=== PATIENT | male | born 1950 | race Two or more races ===

== ENCOUNTER 2017-08-23 16:30 | Inpatient (IN) | payer OTHER ==
[~2017-08-23] VITALS: Ht 167.6 cm; Wt 102.3 kg
[~2017-08-23 16:30] MED LIST: ACET-285 PO; ACYC400T PO; AMLO5TAB2 PO; ASPI81TA27 PO; ATOR10TA52 PO; BORT3.5I IV; CEPH500C PO; CHLO25TA34 PO; DEXA6TAB PO; DOCU-99 PO; DOXY150T PO; FENT25DI TD; GLIP-115 PO; LISI40TA PO; PANT1INJ3 PO; [UNRECOGNIZED DRUG - CODE] IJ; [UNRECOGNIZED DRUG - CODE] PO
[2017-08-23] MEDS ORDERED: SODIUM CHLORIDE 0.9% 1,000 ML IVB ONE (17:23)
[2017-08-23 19:14] LABS: Eosinophils # (auto) 0.1 uL; Hematocrit 30.2 % (41.0-53.0); Lymphocytes # (auto) 0.6 uL; Monocytes # (auto) 0.4 uL; Red Cell Distribution Width 15.3 % (11.8-14.3)
[2017-08-23 19:19] LABS: Basophils # (auto) 0 uL; Hemoglobin 10.5 g/dL (13.5-17.5); Lymphocytes % (auto) 12.8 % (10.0-50.0); Mean Corpuscular Hgb Conc. 34.6 g/dL (32.0-36.0); Mean Corpuscular Volume 104.1 fL (80.0-100.0); Monocytes % (auto) 8.1 % (0.0-12.0); Neutrophils # (auto) 3.3 uL; Neutrophils % (auto) 76.1 % (37.0-80.0); Nucleated Red Blood Cells % 0.2 %; Platelet Count (auto) 99 10^3/uL (140-450); White Blood Cell 4.4 10^3/uL (4.4-10.8)
[2017-08-23] MEDS ORDERED: ACETAMINOPHEN 650 MG RECT SUPP PR ONE ×4 (19:25→21:00)
[2017-08-23 19:28] LABS: INR 1.07 (0.9-1.15); Partial Thromboplastin Time 25.7 sec (22.64-33.71); Prothrombin Time 11.7 sec (9.37-12.3)
[2017-08-23] MEDS ORDERED: cefTRIAXone 1GM/10ml IVPUSH 10 ML IV ONE (19:30)
[2017-08-23 19:31] LABS: Alanine Aminotransferase 16 U/L (16-61); Albumin 2.8 g/dL (3.4-5.0); Anion Gap 8 (5-15); Aspartate Aminotransferase 10 U/L (15-37); BUN/Creatinine Ratio 7.9; Blood Urea Nitrogen 11 mg/dL (7-18); Calcium 7.2 mg/dL (8.5-10.1); Carbon Dioxide 22 mmol/L (21-32); Chloride 113 mmol/L (98-107); GFR African American 65 mL/min; GFR Non-African American 54 mL/min; Glucose 162 mg/dL (74-106); Potassium 3.7 mmol/L (3.5-5.1); Sodium 143 mmol/L (136-145)
[2017-08-23 19:36] LABS: Alkaline Phosphatase 61 U/L (45-117); Bilirubin, Total 2.1 mg/dL (0.2-1.0)
[2017-08-23 21:27] LABS: Urine Amorphous Crystal FEW /hpf (None Seen); Urine Bacteria NONE SEEN /hpf (None Seen); Urine Blood 3+ /uL (Negative); Urine Specific Gravity 1.021 (1.001-1.035); Urine WBC 27 /hpf (0 - 3)
[2017-08-23] MEDS ORDERED: LORazepam 2MG/ML-1ML VIAL ONE ×2 (22:37→23:36)
[2017-08-23] MEDS ORDERED: LORazepam 2MG/ML-1ML VIAL IV ONE ×2 (22:45→23:45)
[2017-08-23] MEDS ORDERED: SODIUM CHLORIDE 0.9% 1,000 ML IV ONE (23:45)
[2017-08-24] MEDS ORDERED: NITROGLYCERIN 0.4 MG SL TAB SL PRN (01:15)
[2017-08-24] MEDS ORDERED: PIPERACILLIN-TAZOB 3.375GM 50 ML IV ONE (01:15)
[2017-08-24] MEDS ORDERED: MORPHINE SULF INJ 2 MG/ML SYRINGE 1ML IV PRN (01:15)
[2017-08-24] MEDS ORDERED: ACETAMINOPHEN 650 MG RECT SUPP PR PRN (01:15)
[2017-08-24] MEDS ORDERED: VANCOMYCIN PER PHARMACY 0 MG IV SCH (01:15)
[2017-08-24] MEDS ORDERED: VANCOMYCIN 1GM/250ML 250 ML IV ONE (01:45)
[2017-08-24 04:12] VITALS: BP 145/67
[2017-08-24 06:16] LABS: Albumin 2.7 g/dL (3.4-5.0); BUN/Creatinine Ratio 9.4; Potassium 3.8 mmol/L (3.5-5.1)
[2017-08-24 06:19] LABS: Bilirubin, Total 1.8 mg/dL (0.2-1.0); Total Protein 6.3 g/dL (6.4-8.2)
[2017-08-24] MEDS: PIPERACILLIN-TAZOB 3.375GM 50 ML IV SCH ×3 (06:41→18:33)
[2017-08-24] MEDS: IPRATROPIUM BROM 0.5 MG/2.5ML INH SOL NEB SCH ×2 (06:45→11:00)
[2017-08-24] MEDS: ALBUTEROL SULF 2.5 MG/0.5ML(0.5%) NEB SOLN NEB SCH ×2 (06:45→11:00)
[2017-08-24] MEDS ORDERED: LORazepam 2MG/ML-1ML VIAL IV PRN (11:15)
[2017-08-24] MEDS ORDERED: PANTOPRAZOLE 40 MG/10 ML VIAL IV ONE (15:15)
[2017-08-24] MEDS ORDERED: LISINOPRIL 20 MG TAB PO ONE (15:30)
[2017-08-24] MEDS: ATORVASTATIN 20 MG TAB PO SCH (22:05)
[2017-08-24] MEDS: ACETAMINOPHEN 650 MG RECT SUPP PR PRN (22:45)
[2017-08-24] MEDS: VANCOMYCIN 1GM/250ML 250 ML IV SCH (23:00)
[2017-08-25] MEDS ORDERED: AMIODARONE HCL 150 MG in D5W 5% 100 ML IV ONE ×2
[2017-08-25] MEDS ORDERED: AMIODARONE HCL 900 MG in DEXTROSE 500 ML IV SCH ×2 (00:01→06:01)
[2017-08-25] MEDS ORDERED: AMIODARONE HCL (50 MG/ ML) 3 ML VIAL IV ONE ×2 (00:09→00:11)
[2017-08-25] MEDS: PIPERACILLIN-TAZOB 3.375GM 50 ML IV SCH ×4 (00:30→17:54)
[2017-08-25] MEDS: ALBUTEROL SULF 2.5 MG/0.5ML(0.5%) NEB SOLN NEB SCH ×3 (06:45→18:21)
[2017-08-25] MEDS: IPRATROPIUM BROM 0.5 MG/2.5ML INH SOL NEB SCH ×3 (06:45→18:21)
[2017-08-25 08:50] LABS: Eosinophils # (auto) 0.2 uL; Hemoglobin 9.2 g/dL (13.5-17.5); Lymphocytes # (auto) 0.7 uL; Monocytes # (auto) 0.3 uL; Neutrophils % (auto) 64.3 % (37.0-80.0); Red Cell Distribution Width 15.4 % (11.8-14.3)
[2017-08-25 08:53] LABS: Basophils # (auto) 0.1 uL; Basophils % (auto) 1.8 % (0.0-2.0); Eosinophils % (auto) 5.5 % (0.0-7.0); Hematocrit 26.4 % (41.0-53.0); Lymphocytes % (auto) 18.6 % (10.0-50.0); Mean Corpuscular Hemoglobin 36.3 pg (28.0-32.0); Mean Corpuscular Hgb Conc. 34.7 g/dL (32.0-36.0); Mean Corpuscular Volume 104.6 fL (80.0-100.0); Monocytes % (auto) 9.8 % (0.0-12.0); Neutrophils # (auto) 2.2 uL; Nucleated Red Blood Cells % 0.3 %; Platelet Count (auto) 91 10^3/uL (140-450); Red Blood Cells 2.53 10^6/uL (4.5-5.90); White Blood Cell 3.5 10^3/uL (4.4-10.8)
[2017-08-25 09:13] LABS: Albumin 2.4 g/dL (3.4-5.0); BUN/Creatinine Ratio 10.9; Bilirubin, Total 1.5 mg/dL (0.2-1.0); Calcium 6.9 mg/dL (8.5-10.1); Potassium 3.3 mmol/L (3.5-5.1); Total Protein 5.5 g/dL (6.4-8.2)
[2017-08-25] MEDS: LISINOPRIL 20 MG TAB PO SCH (11:12)
[2017-08-25] MEDS: PANTOPRAZOLE 40 MG/10 ML VIAL IV SCH (11:12)
[2017-08-25] MEDS: SODIUM CHLORIDE 0.9% 1,000 ML IV SCH (16:45)
[2017-08-25] MEDS ORDERED: LIDOCAINE 1% IV ONE (17:45)
[2017-08-25] MEDS ORDERED: D5W 5% IV ONE (17:45)
[2017-08-25] MEDS ORDERED: POTASSIUM CHLORIDE IV ONE (17:45)
[2017-08-25] MEDS ORDERED: POTASSIUM CHLORIDE 20 MEQ, LIDOCAINE 1% (LOCAL ANESTH.) 2 ML in SODIUM CHL 0.9% 100 ML IV ONE (17:45)
[2017-08-25 20:00] VITALS: BP 153/74
[2017-08-25 20:10] VITALS: BP 153/73
[2017-08-25] MEDS: VANCOMYCIN 1GM/250ML 250 ML IV SCH (21:58)
[2017-08-25] MEDS: ATORVASTATIN 20 MG TAB PO SCH (22:00)
[2017-08-26] VITALS (7 sets, daily range): BP systolic 119–159; BP diastolic 66–78
[2017-08-26] MEDS: IPRATROPIUM BROM 0.5 MG/2.5ML INH SOL NEB SCH ×5 (00:55→23:57)
[2017-08-26] MEDS: ALBUTEROL SULF 2.5 MG/0.5ML(0.5%) NEB SOLN NEB SCH ×5 (00:55→23:57)
[2017-08-26] MEDS: SODIUM CHLORIDE 0.9% 1,000 ML IV SCH ×3 (02:00→21:36)
[2017-08-26 05:17] LABS: Eosinophils # (auto) 0 uL; Hemoglobin 8.5 g/dL (13.5-17.5); Lymphocytes # (auto) 0.5 uL; Monocytes # (auto) 0.3 uL; Neutrophils # (auto) 1.3 uL; White Blood Cell 2.3 10^3/uL (4.4-10.8)
[2017-08-26 05:20] LABS: Basophils # (auto) 0 uL; Basophils % (auto) 1.4 % (0.0-2.0); Hematocrit 24.5 % (41.0-53.0); Mean Corpuscular Hemoglobin 36.2 pg (28.0-32.0); Mean Corpuscular Hgb Conc. 34.9 g/dL (32.0-36.0); Mean Corpuscular Volume 103.7 fL (80.0-100.0); Monocytes % (auto) 14.6 % (0.0-12.0); Nucleated Red Blood Cells % 0.3 %; Platelet Count (auto) 101 10^3/uL (140-450); Red Blood Cells 2.36 10^6/uL (4.5-5.90)
[2017-08-26 05:40] LABS: Albumin 2.4 g/dL (3.4-5.0); BUN/Creatinine Ratio 7.4; Bilirubin, Total 0.9 mg/dL (0.2-1.0); Calcium 6.9 mg/dL (8.5-10.1); Total Protein 5.5 g/dL (6.4-8.2)
[2017-08-26 06:13] LABS: Potassium 2.9 mmol/L (3.5-5.1)
[2017-08-26] MEDS: PIPERACILLIN-TAZOB 3.375GM 50 ML IV SCH ×2 (06:27)
[2017-08-26] MEDS ORDERED: POTASSIUM CHL 20MEQ/50ML 50 ML IV ONE (08:45)
[2017-08-26] MEDS ORDERED: LORazepam 2MG/ML-1ML VIAL IV PRN (09:15)
[2017-08-26] MEDS: LISINOPRIL 20 MG TAB PO SCH (09:28)
[2017-08-26 09:36] LABS: Cholesterol 82 mg/dL (< 200); HDL Cholesterol 37 mg/dL (40-59); LDL Cholesterol 41 mg/dL (< 100); Triglycerides 115 mg/dL (< 150)
[2017-08-26] MEDS: ACETAMINOPHEN 650 MG RECT SUPP PR PRN (09:55)
[2017-08-26] MEDS: ASPirin 300 MG RECTAL SUPP PR SCH (10:00)
[2017-08-26] MEDS ORDERED: POTASSIUM CHLORIDE 40 MEQ, LIDOCAINE 1% (LOCAL ANESTH.) 4 ML in SODIUM CHL 0.9% 100 ML IV ONE ×2 (10:45→12:30)
[2017-08-26] MEDS ORDERED: DEXTROSE (50%) 50ML SYRG IV PRN (11:00)
[2017-08-26] MEDS: PANTOPRAZOLE 40 MG/10 ML VIAL IV SCH (11:45)
[2017-08-26] MEDS: ACCU-CHEK COMFORT CURVE STRIP VI SCH ×2 (12:00→18:29)
[2017-08-26] MEDS: InsuLIN REG 1unit/0.01ml Soln (100units/ml) SC SCH ×2 (13:11→19:50)
[2017-08-26] MEDS: PIPERACILLIN TAZOB 3.375 GM IV SCH ×2 (13:12→20:19)
[2017-08-26 13:48] LABS: Free T4 (Free Thyroxine) 0.97 ng/dL (0.89-1.76)
[2017-08-26 13:49] LABS: Folate (Folic Acid) 13.46 ng/mL (5.38-24)
[2017-08-26] MEDS: LORazepam 2MG/ML-1ML VIAL IV PRN (15:10)
[2017-08-26] MEDS ORDERED: LIDOCAINE 1% HCL (LOCAL ANESTH.) INJ 20ML MDV ID ONE (16:15)
[2017-08-26] MEDS: VANCOMYCIN 1GM/250ML 250 ML IV SCH (17:00)
[2017-08-26] MEDS ORDERED: AMIODARONE HCL 200 MG TAB PO ONE (17:00)
[2017-08-26] MEDS ORDERED: PIPERACILLIN TAZOB 3.375 GM IV SCH (18:00)
[2017-08-26] MEDS: AMIODARONE HCL 200 MG TAB PO SCH (21:35)
[2017-08-26] MEDS: SODIUM CHLOR 0.9% PF (SALINE LOCK) 10ML VIAL IV SCH (21:36)
[2017-08-26] MEDS: ATORVASTATIN 20 MG TAB PO SCH (21:36)
[2017-08-27] VITALS: BP 135/75
[2017-08-27] MEDS: PIPERACILLIN TAZOB 3.375 GM IV SCH ×4 (00:10→21:10)
[2017-08-27] MEDS: ACCU-CHEK COMFORT CURVE STRIP VI SCH ×4 (00:11→17:42)
[2017-08-27] MEDS: ACETAMINOPHEN 650 MG RECT SUPP PR PRN (00:33)
[2017-08-27] MEDS: AMIODARONE HCL 900 MG in DEXTROSE 500 ML IV SCH (02:31)
[2017-08-27 04:00] VITALS: BP 157/85
[2017-08-27 05:07] LABS: Basophils # (auto) 0 uL; Eosinophils # (auto) 0 uL; Hemoglobin 7.8 g/dL (13.5-17.5); Lymphocytes # (auto) 0.5 uL; Monocytes # (auto) 0.2 uL; Neutrophils # (auto) 1.2 uL; Red Cell Distribution Width 15.5 % (11.8-14.3)
[2017-08-27 05:09] LABS: Basophils % (auto) 1.6 % (0.0-2.0); Hematocrit 23.1 % (41.0-53.0); Lymphocytes % (auto) 25.9 % (10.0-50.0); Mean Corpuscular Hemoglobin 35.6 pg (28.0-32.0); Mean Corpuscular Hgb Conc. 33.9 g/dL (32.0-36.0); Monocytes % (auto) 12.1 % (0.0-12.0); Neutrophils % (auto) 59.4 % (37.0-80.0); Nucleated Red Blood Cells % 0.1 %; Platelet Count (auto) 94 10^3/uL (140-450)
[2017-08-27 05:39] LABS: Albumin 2.2 g/dL (3.4-5.0); BUN/Creatinine Ratio 6.8; Bilirubin, Total 0.9 mg/dL (0.2-1.0); Calcium 6.9 mg/dL (8.5-10.1); Potassium 3.2 mmol/L (3.5-5.1); Total Protein 5.4 g/dL (6.4-8.2)
[2017-08-27] MEDS: InsuLIN REG 1unit/0.01ml Soln (100units/ml) SC SCH ×4 (06:00→17:41)
[2017-08-27] MEDS: IPRATROPIUM BROM 0.5 MG/2.5ML INH SOL NEB SCH ×2 (06:07→20:09)
[2017-08-27] MEDS: ALBUTEROL SULF 2.5 MG/0.5ML(0.5%) NEB SOLN NEB SCH ×2 (06:08→20:08)
[2017-08-27 07:56] VITALS: BP 125/75
[2017-08-27] MEDS: SODIUM CHLOR 0.9% PF (SALINE LOCK) 10ML VIAL IV SCH ×2 (09:59→21:10)
[2017-08-27] MEDS: AMIODARONE HCL 200 MG TAB PO SCH ×2 (10:00→21:10)
[2017-08-27] MEDS: ASPirin 300 MG RECTAL SUPP PR SCH (10:00)
[2017-08-27] MEDS: LISINOPRIL 20 MG TAB PO SCH (10:00)
[2017-08-27] MEDS: PANTOPRAZOLE 40 MG/10 ML VIAL IV SCH (10:00)
[2017-08-27] MEDS: SODIUM CHLORIDE 0.9% 1,000 ML IV SCH (11:55)
[2017-08-27 12:10] VITALS: BP 139/79
[2017-08-27] MEDS ORDERED: POTASSIUM CHLORIDE 40 MEQ, LIDOCAINE 1% (LOCAL ANESTH.) 4 ML in SODIUM CHL 0.9% 100 ML IV ONE (12:30)
[2017-08-27] MEDS ORDERED: POTASSIUM CHLORIDE 40 MEQ, LIDOCAINE 1% (LOCAL ANESTH.) 4 ML in SODIUM CHL 0.9% 250 ML IV ONE (12:45)
[2017-08-27 15:50] VITALS: BP 159/78
[2017-08-27] MEDS: VANCOMYCIN 1GM/250ML 250 ML IV SCH (17:00)
[2017-08-27 20:00] VITALS: BP 154/66
[2017-08-27] MEDS: ATORVASTATIN 20 MG TAB PO SCH (21:10)
[2017-08-28 00:03] VITALS: BP 157/76
[2017-08-28] MEDS: ACCU-CHEK COMFORT CURVE STRIP VI SCH ×4 (00:13→17:45)
[2017-08-28] MEDS: PIPERACILLIN TAZOB 3.375 GM IV SCH ×5 (00:13→23:43)
[2017-08-28] MEDS: IPRATROPIUM BROM 0.5 MG/2.5ML INH SOL NEB SCH ×4 (01:18→19:12)
[2017-08-28] MEDS: ALBUTEROL SULF 2.5 MG/0.5ML(0.5%) NEB SOLN NEB SCH ×4 (01:18→19:12)
[2017-08-28] MEDS: SODIUM CHLORIDE 0.9% 1,000 ML IV SCH (01:21)
[2017-08-28] MEDS: LORazepam 2MG/ML-1ML VIAL IV PRN (01:50)
[2017-08-28] MEDS: AMIODARONE HCL 900 MG in DEXTROSE 500 ML IV SCH (03:06)
[2017-08-28] MEDS: ACETAMINOPHEN 650 MG RECT SUPP PR PRN (03:49)
[2017-08-28 04:08] VITALS: BP 137/64
[2017-08-28 06:02] LABS: Eosinophils # (auto) 0 uL; Hemoglobin 7.3 g/dL (13.5-17.5); Platelet Count (auto) 102 10^3/uL (140-450)
[2017-08-28 06:04] LABS: Basophils # (auto) 0.1 uL; Basophils % (auto) 3.8 % (0.0-2.0); Eosinophils % (auto) 2.3 % (0.0-7.0); Hematocrit 21.6 % (41.0-53.0); Lymphocytes # (auto) 0.4 uL; Lymphocytes % (auto) 21.2 % (10.0-50.0); Mean Corpuscular Hemoglobin 35.7 pg (28.0-32.0); Mean Corpuscular Hgb Conc. 33.8 g/dL (32.0-36.0); Mean Corpuscular Volume 105.8 fL (80.0-100.0); Monocytes # (auto) 0.3 uL; Monocytes % (auto) 12.5 % (0.0-12.0); Neutrophils # (auto) 1.2 uL; Neutrophils % (auto) 60.2 % (37.0-80.0); Nucleated Red Blood Cells % 0.1 %; Red Blood Cells 2.04 10^6/uL (4.5-5.90); Red Cell Distribution Width 15.7 % (11.8-14.3)
[2017-08-28] MEDS: InsuLIN REG 1unit/0.01ml Soln (100units/ml) SC SCH ×4 (06:18→17:45)
[2017-08-28 06:35] LABS: BUN/Creatinine Ratio 6.2; Bilirubin, Total 0.8 mg/dL (0.2-1.0); Calcium 7.1 mg/dL (8.5-10.1); Total Protein 5.2 g/dL (6.4-8.2)
[2017-08-28 06:39] LABS: Potassium 2.9 mmol/L (3.5-5.1)
[2017-08-28] MEDS ORDERED: SOD CHL 0.9%/ KCL 40MEQ 1,000 ML IV ONE (06:42)
[2017-08-28] MEDS: SOD CHL 0.9%/ KCL 40MEQ 1,000 ML IV SCH ×2 (06:51→16:45)
[2017-08-28 08:00] VITALS: BP 141/75
[2017-08-28] MEDS: AMIODARONE HCL 200 MG TAB PO SCH ×2 (10:00→22:00)
[2017-08-28] MEDS: ASPirin 300 MG RECTAL SUPP PR SCH (10:00)
[2017-08-28] MEDS: PANTOPRAZOLE 40 MG/10 ML VIAL IV SCH (10:31)
[2017-08-28] MEDS: SODIUM CHLOR 0.9% PF (SALINE LOCK) 10ML VIAL IV SCH ×2 (10:31→22:51)
[2017-08-28] MEDS: LISINOPRIL 20 MG TAB PO SCH (10:31)
[2017-08-28 12:00] VITALS: BP 148/72
[2017-08-28] MEDS: IPRATROPIUM BROM 0.5 MG/2.5ML INH SOL NEB PRN (15:02)
[2017-08-28] MEDS: ALBUTEROL SULF 2.5 MG/0.5ML(0.5%) NEB SOLN NEB PRN (15:02)
[2017-08-28 16:00] VITALS: BP 153/79
[2017-08-28] MEDS: VANCOMYCIN 1GM/250ML 250 ML IV SCH (17:05)
[2017-08-28 19:59] VITALS: BP 138/81
[2017-08-28] MEDS: ATORVASTATIN 20 MG TAB PO SCH (21:20)
[2017-08-28] MEDS ORDERED: DIPHENOXYLATE W/ATROPINE 2.5 MG TAB PO ONE (22:30)
[2017-08-29] VITALS (7 sets, daily range): BP systolic 130–157; BP diastolic 59–89
[2017-08-29] MEDS: IPRATROPIUM BROM 0.5 MG/2.5ML INH SOL NEB SCH ×4 (00:10→19:43)
[2017-08-29] MEDS: ALBUTEROL SULF 2.5 MG/0.5ML(0.5%) NEB SOLN NEB SCH ×4 (00:11→19:43)
[2017-08-29] MEDS: ACCU-CHEK COMFORT CURVE STRIP VI SCH ×5 (00:13→23:55)
[2017-08-29] MEDS: InsuLIN REG 1unit/0.01ml Soln (100units/ml) SC SCH ×5 (00:13→23:55)
[2017-08-29] MEDS: ACETAMINOPHEN 650 MG RECT SUPP PR PRN ×2 (00:14→08:17)
[2017-08-29] MEDS: LORazepam 2MG/ML-1ML VIAL IV PRN ×2 (01:15→22:30)
[2017-08-29] MEDS ORDERED: MORPHINE SULF INJ 2 MG/ML SYRINGE 1ML IV PRN (02:15)
[2017-08-29] MEDS: SOD CHL 0.9%/ KCL 40MEQ 1,000 ML IV SCH ×3 (02:45→22:30)
[2017-08-29] MEDS: AMIODARONE HCL 900 MG in DEXTROSE 500 ML IV SCH ×2 (02:52→09:15)
[2017-08-29 06:08] LABS: Albumin 1.9 g/dL (3.4-5.0); BUN/Creatinine Ratio 4.1; Calcium 6.9 mg/dL (8.5-10.1)
[2017-08-29 06:11] LABS: Bilirubin, Total 0.7 mg/dL (0.2-1.0); Total Protein 5.3 g/dL (6.4-8.2)
[2017-08-29 06:16] LABS: Potassium 2.9 mmol/L (3.5-5.1)
[2017-08-29] MEDS: PIPERACILLIN TAZOB 3.375 GM IV SCH ×4 (06:21→23:55)
[2017-08-29] MEDS ORDERED: MORPHINE SULFATE 4 MG/ML SYR/VIAL IV PRN (08:15)
[2017-08-29] MEDS: MORPHINE SULFATE 4 MG/ML SYR/VIAL IV PRN ×2 (08:39→20:08)
[2017-08-29] MEDS: LISINOPRIL 20 MG TAB PO SCH (10:00)
[2017-08-29] MEDS: AMIODARONE HCL 200 MG TAB PO SCH ×2 (10:00→21:43)
[2017-08-29] MEDS: PANTOPRAZOLE 40 MG/10 ML VIAL IV SCH (10:24)
[2017-08-29] MEDS: SODIUM CHLOR 0.9% PF (SALINE LOCK) 10ML VIAL IV SCH ×2 (10:24→21:43)
[2017-08-29] MEDS: POTASSIUM CHL 20MEQ/50ML 50 ML IV SCH ×2 (10:26→11:40)
[2017-08-29] MEDS: ALBUTEROL SULF 2.5 MG/0.5ML(0.5%) NEB SOLN NEB PRN (10:35)
[2017-08-29] MEDS: IPRATROPIUM BROM 0.5 MG/2.5ML INH SOL NEB PRN (10:35)
[2017-08-29] MEDS: ASPirin 300 MG RECTAL SUPP PR SCH (10:45)
[2017-08-29] MEDS ORDERED: FUROSEMIDE 20 MG/2 ML VIAL IV ONE (15:15)
[2017-08-29] MEDS: VANCOMYCIN 1GM/250ML 250 ML IV SCH (17:33)
[2017-08-29] MEDS: ATORVASTATIN 20 MG TAB PO SCH (21:43)
[2017-08-30] VITALS (7 sets, daily range): BP systolic 105–162; BP diastolic 71–91
[2017-08-30] MEDS: MORPHINE SULFATE 4 MG/ML SYR/VIAL IV PRN (00:09)
[2017-08-30] MEDS ORDERED: diphenhdrAMINE HCL 50 MG/1 ML VL ONE (01:42)
[2017-08-30] MEDS ORDERED: diphenhdrAMINE HCL 50 MG/1 ML VL IV ONE (01:45)
[2017-08-30] MEDS: ENALAPRILAT 1.25 MG/ML-1ML VIAL IV PRN (01:54)
[2017-08-30] MEDS: PIPERACILLIN TAZOB 3.375 GM IV SCH ×3 (05:35→18:08)
[2017-08-30] MEDS: ACCU-CHEK COMFORT CURVE STRIP VI SCH ×3 (05:36→17:52)
[2017-08-30] MEDS: InsuLIN REG 1unit/0.01ml Soln (100units/ml) SC SCH ×3 (05:36→17:55)
[2017-08-30 05:54] LABS: Albumin 2.1 g/dL (3.4-5.0); BUN/Creatinine Ratio 4.9; Calcium 7.2 mg/dL (8.5-10.1); Potassium 3.4 mmol/L (3.5-5.1)
[2017-08-30 05:57] LABS: Bilirubin, Total 0.5 mg/dL (0.2-1.0); Total Protein 5.7 g/dL (6.4-8.2)
[2017-08-30] MEDS: IPRATROPIUM BROM 0.5 MG/2.5ML INH SOL NEB SCH ×5 (06:15→22:00)
[2017-08-30] MEDS: ALBUTEROL SULF 2.5 MG/0.5ML(0.5%) NEB SOLN NEB SCH ×6 (06:15→22:00)
[2017-08-30] MEDS: SOD CHL 0.9%/ KCL 40MEQ 1,000 ML IV SCH (08:45)
[2017-08-30] MEDS: LISINOPRIL 20 MG TAB PO SCH (09:50)
[2017-08-30] MEDS: SODIUM CHLOR 0.9% PF (SALINE LOCK) 10ML VIAL IV SCH ×2 (09:50→22:08)
[2017-08-30] MEDS: PANTOPRAZOLE 40 MG/10 ML VIAL IV SCH (09:50)
[2017-08-30] MEDS: AMIODARONE HCL 200 MG TAB PO SCH ×2 (09:50→22:14)
[2017-08-30] MEDS: ASPirin 300 MG RECTAL SUPP PR SCH (09:51)
[2017-08-30] MEDS ORDERED: FUROSEMIDE 40 MG/4 ML VIAL ONE (10:07)
[2017-08-30] MEDS ORDERED: IPRATROPIUM BROM 0.5 MG/2.5ML INH SOL NEB SCH (10:10)
[2017-08-30] MEDS: IPRATROPIUM BROM 0.5 MG/2.5ML INH SOL NEB PRN (10:11)
[2017-08-30] MEDS: ALBUTEROL SULF 2.5 MG/0.5ML(0.5%) NEB SOLN NEB PRN (10:11)
[2017-08-30] MEDS ORDERED: FUROSEMIDE 40 MG/4 ML VIAL IV ONE (10:15)
[2017-08-30] MEDS ORDERED: methylPREDNISolone SOD SUCC 125 MG/2 ML VL IM ONE (10:30)
[2017-08-30] MEDS ORDERED: SODIUM BICARBONATE 8.4 % INJ 50ML VIAL IV ONE (14:45)
[2017-08-30] MEDS: VANCOMYCIN 1GM/250ML 250 ML IV SCH (17:03)
[2017-08-30] MEDS: AMIODARONE HCL 900 MG in DEXTROSE 500 ML IV SCH (22:00)
[2017-08-30] MEDS: ATORVASTATIN 20 MG TAB PO SCH (22:03)
[2017-08-31] VITALS (9 sets, daily range): BP systolic 144–174; BP diastolic 75–94
[2017-08-31] MEDS: PIPERACILLIN TAZOB 3.375 GM IV SCH ×4 (00:03→18:23)
[2017-08-31] MEDS: ACCU-CHEK COMFORT CURVE STRIP VI SCH ×4 (00:13→18:09)
[2017-08-31] MEDS: ENALAPRILAT 1.25 MG/ML-1ML VIAL IV PRN ×2 (00:19→22:02)
[2017-08-31] MEDS: InsuLIN REG 1unit/0.01ml Soln (100units/ml) SC SCH ×4 (00:52→18:09)
[2017-08-31] MEDS: MORPHINE SULFATE 4 MG/ML SYR/VIAL IV PRN (01:42)
[2017-08-31] MEDS: ALBUTEROL SULF 2.5 MG/0.5ML(0.5%) NEB SOLN NEB SCH ×3 (02:17→22:24)
[2017-08-31] MEDS: IPRATROPIUM BROM 0.5 MG/2.5ML INH SOL NEB SCH ×3 (02:17→22:24)
[2017-08-31 09:35] LABS: Basophils # (auto) 0 uL; Basophils % (auto) 0.2 % (0.0-2.0); Eosinophils # (auto) 0 uL; Hematocrit 24.1 % (41.0-53.0); Lymphocytes # (auto) 0.3 uL; Lymphocytes % (auto) 9.9 % (10.0-50.0); Mean Corpuscular Hgb Conc. 33.2 g/dL (32.0-36.0); Monocytes # (auto) 0.2 uL; Monocytes % (auto) 4.3 % (0.0-12.0); Neutrophils % (auto) 85.6 % (37.0-80.0); Nucleated Red Blood Cells % 0.3 %; Platelet Count (auto) 116 10^3/uL (140-450); Red Blood Cells 2.28 10^6/uL (4.5-5.90); Red Cell Distribution Width 14.9 % (11.8-14.3); White Blood Cell 3.5 10^3/uL (4.4-10.8)
[2017-08-31 09:37] LABS: Mean Corpuscular Volume 105.5 fL (80.0-100.0)
[2017-08-31 10:12] LABS: Albumin 2.1 g/dL (3.4-5.0); BUN/Creatinine Ratio 11.3; Bilirubin, Total 0.6 mg/dL (0.2-1.0); Calcium 7.3 mg/dL (8.5-10.1); Potassium 3.2 mmol/L (3.5-5.1); Total Protein 6.2 g/dL (6.4-8.2)
[2017-08-31] MEDS: SODIUM CHLOR 0.9% PF (SALINE LOCK) 10ML VIAL IV SCH ×2 (10:18→21:06)
[2017-08-31] MEDS: methylPREDNISolone SOD SUCC 125 MG/2 ML VL IV SCH (10:18)
[2017-08-31] MEDS: PANTOPRAZOLE 40 MG/10 ML VIAL IV SCH (10:18)
[2017-08-31] MEDS: LISINOPRIL 20 MG TAB PO SCH (10:19)
[2017-08-31] MEDS: AMIODARONE HCL 200 MG TAB PO SCH ×2 (10:19→21:39)
[2017-08-31] MEDS: ASPirin-EC 81 mg tab PO SCH (10:19)
[2017-08-31] MEDS ORDERED: POTASSIUM CHLORIDE 40 MEQ, LIDOCAINE 1% (LOCAL ANESTH.) 4 ML in SODIUM CHL 0.9% 100 ML IV ONE (10:45)
[2017-08-31] MEDS: VANCOMYCIN 1GM/250ML 250 ML IV SCH (17:00)
[2017-08-31] MEDS: ATORVASTATIN 20 MG TAB PO SCH (21:39)
[2017-08-31] MEDS: LORazepam 2MG/ML-1ML VIAL IV PRN (22:37)
[2017-09-01] VITALS: BP 161/91
[2017-09-01] MEDS: PIPERACILLIN TAZOB 3.375 GM IV SCH ×4 (00:05→18:01)
[2017-09-01] MEDS: ACCU-CHEK COMFORT CURVE STRIP VI SCH ×4 (00:05→17:43)
[2017-09-01] MEDS: InsuLIN REG 1unit/0.01ml Soln (100units/ml) SC SCH ×4 (00:06→17:44)
[2017-09-01] MEDS: MORPHINE SULFATE 4 MG/ML SYR/VIAL IV PRN (01:26)
[2017-09-01] MEDS: AMIODARONE HCL 900 MG in DEXTROSE 500 ML IV SCH (02:17)
[2017-09-01] MEDS: ALBUTEROL SULF 2.5 MG/0.5ML(0.5%) NEB SOLN NEB SCH ×6 (02:37→22:11)
[2017-09-01] MEDS: IPRATROPIUM BROM 0.5 MG/2.5ML INH SOL NEB SCH ×6 (02:37→22:11)
[2017-09-01 04:22] VITALS: BP 134/69
[2017-09-01 05:49] LABS: Basophils # (auto) 0 uL; Eosinophils # (auto) 0 uL; Lymphocytes # (auto) 0.2 uL; Nucleated Red Blood Cells % 0.3 %; Platelet Count (auto) 116 10^3/uL (140-450); White Blood Cell 4.2 10^3/uL (4.4-10.8)
[2017-09-01 05:52] LABS: Basophils % (auto) 0.2 % (0.0-2.0); Hematocrit 22.9 % (41.0-53.0); Hemoglobin 7.6 g/dL (13.5-17.5); Lymphocytes % (auto) 4.6 % (10.0-50.0); Mean Corpuscular Hgb Conc. 33.3 g/dL (32.0-36.0); Mean Corpuscular Volume 105.1 fL (80.0-100.0); Monocytes # (auto) 0.2 uL; Neutrophils # (auto) 3.8 uL; Neutrophils % (auto) 91.2 % (37.0-80.0); Red Blood Cells 2.18 10^6/uL (4.5-5.90); Red Cell Distribution Width 15.4 % (11.8-14.3)
[2017-09-01 06:18] LABS: Albumin 2.1 g/dL (3.4-5.0); BUN/Creatinine Ratio 15.7; Calcium 7.2 mg/dL (8.5-10.1)
[2017-09-01 06:21] LABS: Bilirubin, Total 0.6 mg/dL (0.2-1.0)
[2017-09-01 08:00] VITALS: BP 146/81
[2017-09-01] MEDS: SODIUM CHLOR 0.9% PF (SALINE LOCK) 10ML VIAL IV SCH ×2 (10:24→22:19)
[2017-09-01] MEDS: methylPREDNISolone SOD SUCC 125 MG/2 ML VL IV SCH (10:24)
[2017-09-01] MEDS: PANTOPRAZOLE 40 MG/10 ML VIAL IV SCH (10:24)
[2017-09-01] MEDS: ASPirin-EC 81 mg tab PO SCH (10:24)
[2017-09-01] MEDS: LISINOPRIL 20 MG TAB PO SCH (10:25)
[2017-09-01] MEDS: AMIODARONE HCL 200 MG TAB PO SCH ×2 (10:25→22:18)
[2017-09-01 12:00] VITALS: BP 148/72
[2017-09-01] MEDS ORDERED: POTASSIUM CHLORIDE 40 MEQ, LIDOCAINE 1% (LOCAL ANESTH.) 4 ML in SODIUM CHL 0.9% 100 ML IV ONE (12:30)
[2017-09-01 16:00] VITALS: BP 151/86
[2017-09-01] MEDS: VANCOMYCIN 1GM/250ML 250 ML IV SCH (16:38)
[2017-09-01 19:46] VITALS: BP 156/81
[2017-09-01] MEDS: LORazepam 2MG/ML-1ML VIAL IV PRN (21:09)
[2017-09-01] MEDS: ATORVASTATIN 20 MG TAB PO SCH (22:18)
[2017-09-02] VITALS (8 sets, daily range): BP systolic 142–188; BP diastolic 39–89
[2017-09-02] MEDS: MORPHINE SULFATE 4 MG/ML SYR/VIAL IV PRN (00:11)
[2017-09-02] MEDS: PIPERACILLIN TAZOB 3.375 GM IV SCH ×4 (00:12→18:08)
[2017-09-02] MEDS: ACCU-CHEK COMFORT CURVE STRIP VI SCH ×4 (00:12→17:49)
[2017-09-02] MEDS: InsuLIN REG 1unit/0.01ml Soln (100units/ml) SC SCH ×4 (00:38→18:14)
[2017-09-02] MEDS: ALBUTEROL SULF 2.5 MG/0.5ML(0.5%) NEB SOLN NEB SCH ×6 (02:00→22:23)
[2017-09-02] MEDS: IPRATROPIUM BROM 0.5 MG/2.5ML INH SOL NEB SCH ×6 (02:00→22:23)
[2017-09-02 05:48] LABS: Basophils # (auto) 0 uL; Basophils % (auto) 0.1 % (0.0-2.0); Eosinophils # (auto) 0 uL; Hematocrit 22.1 % (41.0-53.0); Hemoglobin 7.5 g/dL (13.5-17.5); Lymphocytes # (auto) 0.2 uL; Lymphocytes % (auto) 3.9 % (10.0-50.0); Mean Corpuscular Hgb Conc. 33.7 g/dL (32.0-36.0); Mean Corpuscular Volume 103.9 fL (80.0-100.0); Monocytes # (auto) 0.2 uL; Monocytes % (auto) 4.7 % (0.0-12.0); Neutrophils # (auto) 3.8 uL; Neutrophils % (auto) 91.3 % (37.0-80.0); Nucleated Red Blood Cells % 0.4 %; Platelet Count (auto) 104 10^3/uL (140-450); Red Blood Cells 2.13 10^6/uL (4.5-5.90); Red Cell Distribution Width 15.2 % (11.8-14.3); White Blood Cell 4.1 10^3/uL (4.4-10.8)
[2017-09-02 06:02] LABS: Albumin 2.2 g/dL (3.4-5.0); BUN/Creatinine Ratio 15.1; Calcium 7.1 mg/dL (8.5-10.1); Potassium 3.1 mmol/L (3.5-5.1)
[2017-09-02 06:05] LABS: Bilirubin, Total 0.6 mg/dL (0.2-1.0); Total Protein 5.8 g/dL (6.4-8.2)
[2017-09-02] MEDS: SODIUM CHLOR 0.9% PF (SALINE LOCK) 10ML VIAL IV SCH ×2 (09:52→21:33)
[2017-09-02] MEDS: methylPREDNISolone SOD SUCC 125 MG/2 ML VL IV SCH (09:52)
[2017-09-02] MEDS: PANTOPRAZOLE 40 MG/10 ML VIAL IV SCH (09:53)
[2017-09-02] MEDS: ASPirin-EC 81 mg tab PO SCH (09:53)
[2017-09-02] MEDS: AMIODARONE HCL 200 MG TAB PO SCH ×2 (09:54→21:32)
[2017-09-02] MEDS: LISINOPRIL 20 MG TAB PO SCH (09:54)
[2017-09-02] MEDS: ENALAPRILAT 1.25 MG/ML-1ML VIAL IV PRN ×2 (12:16→18:17)
[2017-09-02] MEDS: POTASSIUM CHL 20MEQ/50ML 50 ML IV SCH ×2 (16:06→17:48)
[2017-09-02] MEDS: VANCOMYCIN 1GM/250ML 250 ML IV SCH (16:18)
[2017-09-02] MEDS ORDERED: LORazepam 2MG/ML-1ML VIAL IV ONE (20:15)
[2017-09-02] MEDS: ATORVASTATIN 20 MG TAB PO SCH (21:33)
[2017-09-02] MEDS ORDERED: diphenhdrAMINE HCL 50 MG/1 ML VL ONE (22:04)
[2017-09-02] MEDS ORDERED: diphenhdrAMINE HCL 50 MG/1 ML VL IV ONE (22:15)
[2017-09-03] VITALS: BP 165/87
[2017-09-03] MEDS: PIPERACILLIN TAZOB 3.375 GM IV SCH ×2 (00:29→06:22)
[2017-09-03] MEDS: InsuLIN REG 1unit/0.01ml Soln (100units/ml) SC SCH ×4 (00:29→18:58)
[2017-09-03] MEDS: LORazepam 2MG/ML-1ML VIAL IV PRN ×3 (00:30→22:02)
[2017-09-03] MEDS ORDERED: MORPHINE SULF INJ 2 MG/ML SYRINGE 1ML ONE (02:23)
[2017-09-03] MEDS: ALBUTEROL SULF 2.5 MG/0.5ML(0.5%) NEB SOLN NEB SCH ×5 (03:13→18:45)
[2017-09-03] MEDS: IPRATROPIUM BROM 0.5 MG/2.5ML INH SOL NEB SCH ×5 (03:13→18:45)
[2017-09-03 04:00] VITALS: BP 165/115
[2017-09-03] MEDS: MORPHINE SULFATE 4 MG/ML SYR/VIAL IV PRN (04:19)
[2017-09-03 05:22] LABS: Basophils # (auto) 0 uL; Eosinophils # (auto) 0 uL; Hematocrit 22.4 % (41.0-53.0); Hemoglobin 7.6 g/dL (13.5-17.5); Lymphocytes # (auto) 0.2 uL; Monocytes # (auto) 0.2 uL; Platelet Count (auto) 98 10^3/uL (140-450); Red Blood Cells 2.17 10^6/uL (4.5-5.90)
[2017-09-03 05:24] LABS: Basophils % (auto) 0.2 % (0.0-2.0); Lymphocytes % (auto) 4.4 % (10.0-50.0); Mean Corpuscular Hemoglobin 34.9 pg (28.0-32.0); Mean Corpuscular Hgb Conc. 33.9 g/dL (32.0-36.0); Mean Corpuscular Volume 103.2 fL (80.0-100.0); Monocytes % (auto) 4.9 % (0.0-12.0); Neutrophils # (auto) 3.1 uL; Neutrophils % (auto) 90.5 % (37.0-80.0); Nucleated Red Blood Cells % 1.5 %; Red Cell Distribution Width 15.2 % (11.8-14.3); White Blood Cell 3.5 10^3/uL (4.4-10.8)
[2017-09-03 05:34] LABS: Albumin 2.3 g/dL (3.4-5.0); BUN/Creatinine Ratio 15.2; Calcium 7.4 mg/dL (8.5-10.1); Potassium 3.5 mmol/L (3.5-5.1)
[2017-09-03 05:37] LABS: Bilirubin, Total 0.8 mg/dL (0.2-1.0); Total Protein 5.9 g/dL (6.4-8.2)
[2017-09-03] MEDS: ACCU-CHEK COMFORT CURVE STRIP VI SCH ×4 (06:23→18:26)
[2017-09-03 07:30] VITALS: BP 153/77
[2017-09-03] MEDS: ASPirin-EC 81 mg tab PO SCH ×2 (10:00→12:32)
[2017-09-03] MEDS: LISINOPRIL 20 MG TAB PO SCH ×2 (10:00→12:32)
[2017-09-03] MEDS: AMIODARONE HCL 200 MG TAB PO SCH ×3 (10:00→21:25)
[2017-09-03] MEDS: PANTOPRAZOLE 40 MG/10 ML VIAL IV SCH (10:35)
[2017-09-03] MEDS: methylPREDNISolone SOD SUCC 125 MG/2 ML VL IV SCH (10:35)
[2017-09-03] MEDS: SODIUM CHLOR 0.9% PF (SALINE LOCK) 10ML VIAL IV SCH ×2 (10:35→21:25)
[2017-09-03 11:56] VITALS: BP 142/56
[2017-09-03 15:50] VITALS: BP 160/93
[2017-09-03 19:50] VITALS: BP 177/95
[2017-09-03] MEDS: ATORVASTATIN 20 MG TAB PO SCH (21:25)
[2017-09-03] MEDS: ENALAPRILAT 1.25 MG/ML-1ML VIAL IV PRN (22:01)
[2017-09-04] VITALS (7 sets, daily range): BP systolic 139–163; BP diastolic 73–110
[2017-09-04] MEDS: InsuLIN REG 1unit/0.01ml Soln (100units/ml) SC SCH ×4 (00:14→17:52)
[2017-09-04] MEDS: ACCU-CHEK COMFORT CURVE STRIP VI SCH ×4 (00:14→17:51)
[2017-09-04] MEDS ORDERED: MORPHINE SULF INJ 2 MG/ML SYRINGE 1ML ONE (02:36)
[2017-09-04] MEDS: MORPHINE SULFATE 4 MG/ML SYR/VIAL IV PRN (02:38)
[2017-09-04 05:17] LABS: Basophils # (auto) 0 uL; Eosinophils # (auto) 0 uL; Hemoglobin 7.8 g/dL (13.5-17.5); Lymphocytes # (auto) 0.3 uL; Mean Corpuscular Volume 109.5 fL (80.0-100.0); Monocytes # (auto) 0.2 uL; White Blood Cell 3.6 10^3/uL (4.4-10.8)
[2017-09-04 05:20] LABS: Hematocrit 23.9 % (41.0-53.0); Lymphocytes % (auto) 7.5 % (10.0-50.0); Mean Corpuscular Hemoglobin 35.7 pg (28.0-32.0); Mean Corpuscular Hgb Conc. 32.6 g/dL (32.0-36.0); Monocytes % (auto) 5.7 % (0.0-12.0); Neutrophils # (auto) 3.2 uL; Neutrophils % (auto) 86.8 % (37.0-80.0); Nucleated Red Blood Cells % 2.6 %; Platelet Count (auto) 81 10^3/uL (140-450); Red Blood Cells 2.18 10^6/uL (4.5-5.90); Red Cell Distribution Width 15.4 % (11.8-14.3)
[2017-09-04 05:31] LABS: Albumin 2.3 g/dL (3.4-5.0); BUN/Creatinine Ratio 20.6; Bilirubin, Total 0.8 mg/dL (0.2-1.0); Calcium 7.5 mg/dL (8.5-10.1); Potassium 3.3 mmol/L (3.5-5.1); Total Protein 5.9 g/dL (6.4-8.2)
[2017-09-04] MEDS: IPRATROPIUM BROM 0.5 MG/2.5ML INH SOL NEB SCH ×6 (06:00→23:13)
[2017-09-04] MEDS: ALBUTEROL SULF 2.5 MG/0.5ML(0.5%) NEB SOLN NEB SCH ×6 (06:00→23:14)
[2017-09-04] MEDS: D5W 5% 1,000 ML IV SCH ×3 (06:51→23:03)
[2017-09-04] MEDS: ASPirin-EC 81 mg tab PO SCH (10:00)
[2017-09-04] MEDS: LISINOPRIL 20 MG TAB PO SCH (10:00)
[2017-09-04] MEDS: AMIODARONE HCL 200 MG TAB PO SCH ×3 (10:00→22:20)
[2017-09-04] MEDS: SODIUM CHLOR 0.9% PF (SALINE LOCK) 10ML VIAL IV SCH ×2 (10:30→22:20)
[2017-09-04] MEDS: methylPREDNISolone SOD SUCC 125 MG/2 ML VL IV SCH (12:07)
[2017-09-04] MEDS: PANTOPRAZOLE 40 MG/10 ML VIAL IV SCH (12:07)
[2017-09-04] MEDS: POTASSIUM CHL 20MEQ/50ML 50 ML IV SCH ×2 (12:10→12:30)
[2017-09-04 12:19] LABS: Albumin 2.3 g/dL (3.4-5.0); Calcium 7.4 mg/dL (8.5-10.1); Potassium 3.3 mmol/L (3.5-5.1)
[2017-09-04 12:26] LABS: Bilirubin, Total 0.8 mg/dL (0.2-1.0); Total Protein 5.8 g/dL (6.4-8.2)
[2017-09-04] MEDS: ENALAPRILAT 1.25 MG/ML-1ML VIAL IV PRN (15:58)
[2017-09-04 21:05] LABS: BUN/Creatinine Ratio 20.9; Calcium 7.4 mg/dL (8.5-10.1); Potassium 3.6 mmol/L (3.5-5.1)
[2017-09-04] MEDS: ATORVASTATIN 20 MG TAB PO SCH ×2 (22:00→22:20)
[2017-09-05] MEDS: ACCU-CHEK COMFORT CURVE STRIP VI SCH ×5 (00:24→23:55)
[2017-09-05] MEDS: InsuLIN REG 1unit/0.01ml Soln (100units/ml) SC SCH ×5 (00:25→23:55)
[2017-09-05] MEDS: ALBUTEROL SULF 2.5 MG/0.5ML(0.5%) NEB SOLN NEB SCH ×6 (02:16→22:06)
[2017-09-05] MEDS: IPRATROPIUM BROM 0.5 MG/2.5ML INH SOL NEB SCH ×6 (02:16→22:06)
[2017-09-05] MEDS: D5W 5% 1,000 ML IV SCH ×2 (07:01→13:56)
[2017-09-05 08:00] VITALS: BP 163/73
[2017-09-05] MEDS: methylPREDNISolone SOD SUCC 125 MG/2 ML VL IV SCH (09:49)
[2017-09-05] MEDS: PANTOPRAZOLE 40 MG/10 ML VIAL IV SCH (09:49)
[2017-09-05] MEDS: SODIUM CHLOR 0.9% PF (SALINE LOCK) 10ML VIAL IV SCH ×2 (09:49→22:00)
[2017-09-05 10:00] VITALS: BP 147/81
[2017-09-05] MEDS: ASPirin-EC 81 mg tab PO SCH (10:00)
[2017-09-05] MEDS: LISINOPRIL 20 MG TAB PO SCH (10:00)
[2017-09-05] MEDS: AMIODARONE HCL 200 MG TAB PO SCH ×2 (10:00→22:00)
[2017-09-05 12:00] VITALS: BP 137/82
[2017-09-05 13:28] LABS: BUN/Creatinine Ratio 20.9; Calcium 6.9 mg/dL (8.5-10.1); Potassium 3.2 mmol/L (3.5-5.1)
[2017-09-05] MEDS: POTASSIUM CHL 20MEQ/50ML 50 ML IV SCH ×2 (15:31→17:41)
[2017-09-05] MEDS: D5W/SOD CHL 0.45% 1,000 ML IV SCH (15:31)
[2017-09-05 16:00] VITALS: BP 156/72
[2017-09-05 20:00] VITALS: BP 171/78
[2017-09-05] MEDS: ATORVASTATIN 20 MG TAB PO SCH (22:00)
[2017-09-06] VITALS: BP 161/71
[2017-09-06] MEDS: D5W/SOD CHL 0.45% 1,000 ML IV SCH ×3 (01:19→21:15)
[2017-09-06] MEDS: ALBUTEROL SULF 2.5 MG/0.5ML(0.5%) NEB SOLN NEB SCH ×5 (02:00→18:45)
[2017-09-06] MEDS: IPRATROPIUM BROM 0.5 MG/2.5ML INH SOL NEB SCH ×5 (02:00→18:45)
[2017-09-06 05:55] LABS: Calcium 6.8 mg/dL (8.5-10.1); Potassium 3.4 mmol/L (3.5-5.1)
[2017-09-06 05:56] LABS: BUN/Creatinine Ratio 18.9
[2017-09-06 05:59] LABS: Bilirubin, Total 0.6 mg/dL (0.2-1.0)
[2017-09-06] MEDS: ACCU-CHEK COMFORT CURVE STRIP VI SCH ×3 (06:31→18:00)
[2017-09-06] MEDS: InsuLIN REG 1unit/0.01ml Soln (100units/ml) SC SCH ×3 (06:32→18:00)
[2017-09-06 07:13] LABS: Basophils # (auto) 0 uL; Eosinophils # (auto) 0 uL; Hemoglobin 7.5 g/dL (13.5-17.5); Lymphocytes # (auto) 0.3 uL
[2017-09-06 07:17] LABS: Basophils % (auto) 0.2 % (0.0-2.0); Eosinophils % (auto) 0.1 % (0.0-7.0); Hematocrit 22.4 % (41.0-53.0); Lymphocytes % (auto) 6.9 % (10.0-50.0); Mean Corpuscular Hemoglobin 34.5 pg (28.0-32.0); Mean Corpuscular Hgb Conc. 33.5 g/dL (32.0-36.0); Mean Corpuscular Volume 102.8 fL (80.0-100.0); Monocytes # (auto) 0.2 uL; Neutrophils # (auto) 3.9 uL; Neutrophils % (auto) 88.8 % (37.0-80.0); Platelet Count (auto) 55 10^3/uL (140-450); Red Blood Cells 2.18 10^6/uL (4.5-5.90); Red Cell Distribution Width 14.9 % (11.8-14.3); White Blood Cell 4.4 10^3/uL (4.4-10.8)
[2017-09-06 08:00] VITALS: BP 156/99
[2017-09-06] MEDS: SODIUM CHLOR 0.9% PF (SALINE LOCK) 10ML VIAL IV SCH ×2 (10:00→21:51)
[2017-09-06] MEDS: ASPirin-EC 81 mg tab PO SCH (10:00)
[2017-09-06] MEDS: PANTOPRAZOLE 40 MG/10 ML VIAL IV SCH (11:06)
[2017-09-06] MEDS: methylPREDNISolone SOD SUCC 125 MG/2 ML VL IV SCH (11:06)
[2017-09-06] MEDS: AMIODARONE HCL 200 MG TAB PO SCH ×2 (11:07→21:52)
[2017-09-06] MEDS: LISINOPRIL 20 MG TAB PO SCH (11:08)
[2017-09-06 11:50] VITALS: BP 158/72
[2017-09-06] MEDS ORDERED: POTASSIUM CHL 20MEQ/50ML 50 ML IV ONE (12:00)
[2017-09-06] MEDS ORDERED: ONDANSETRON HCL 4 MG/2 ML VIAL IV PRN (13:15)
[2017-09-06 15:50] VITALS: BP 169/58
[2017-09-06 19:58] VITALS: BP_SYST 75
[2017-09-06 21:44] VITALS: BP 168/68
[2017-09-06] MEDS: ATORVASTATIN 20 MG TAB PO SCH (21:52)
[2017-09-07] MEDS: InsuLIN REG 1unit/0.01ml Soln (100units/ml) SC SCH ×5 (00:16→17:20)
[2017-09-07] MEDS: ACCU-CHEK COMFORT CURVE STRIP VI SCH ×5 (00:17→17:20)
[2017-09-07] MEDS: D5W/SOD CHL 0.45% 1,000 ML IV SCH ×2 (07:00→17:19)
[2017-09-07 07:55] LABS: Albumin 1.9 g/dL (3.4-5.0); Calcium 6.5 mg/dL (8.5-10.1); Potassium 3.4 mmol/L (3.5-5.1)
[2017-09-07 08:00] VITALS: BP 133/69
[2017-09-07 08:27] LABS: BUN/Creatinine Ratio 21.7; Bilirubin, Total 0.7 mg/dL (0.2-1.0); Total Protein 4.9 g/dL (6.4-8.2)
[2017-09-07 08:45] LABS: Basophils # (auto) 0 uL; Basophils % (auto) 0.8 % (0.0-2.0); Eosinophils # (auto) 0 uL; Hematocrit 21.8 % (41.0-53.0); Hemoglobin 7.3 g/dL (13.5-17.5); Lymphocytes # (auto) 0.2 uL; Lymphocytes % (auto) 4.9 % (10.0-50.0); Mean Corpuscular Hemoglobin 35.1 pg (28.0-32.0); Mean Corpuscular Hgb Conc. 33.5 g/dL (32.0-36.0); Mean Corpuscular Volume 104.7 fL (80.0-100.0); Monocytes # (auto) 0.1 uL; Monocytes % (auto) 2.7 % (0.0-12.0); Neutrophils # (auto) 4.3 uL; Neutrophils % (auto) 91.6 % (37.0-80.0); Nucleated Red Blood Cells % 0.7 %; Red Blood Cells 2.09 10^6/uL (4.5-5.90); Red Cell Distribution Width 14.9 % (11.8-14.3); White Blood Cell 4.7 10^3/uL (4.4-10.8)
[2017-09-07 08:46] LABS: Platelet Count (auto) 43 10^3/uL (140-450)
[2017-09-07] MEDS: PANTOPRAZOLE 40 MG/10 ML VIAL IV SCH (10:12)
[2017-09-07] MEDS: SODIUM CHLOR 0.9% PF (SALINE LOCK) 10ML VIAL IV SCH ×2 (10:13→22:31)
[2017-09-07] MEDS: methylPREDNISolone SOD SUCC 125 MG/2 ML VL IV SCH (10:13)
[2017-09-07] MEDS: LISINOPRIL 20 MG TAB PO SCH (10:13)
[2017-09-07] MEDS: ASPirin-EC 81 mg tab PO SCH (10:13)
[2017-09-07] MEDS: AMIODARONE HCL 200 MG TAB PO SCH ×2 (10:13→22:31)
[2017-09-07] MEDS ORDERED: DEXTROSE (50%) 50ML SYRG IV PRN ×2 (11:45→18:00)
[2017-09-07 12:00] VITALS: BP 139/73
[2017-09-07] MEDS ORDERED: POTASSIUM CHL 20MEQ/50ML 50 ML IV ONE (13:45)
[2017-09-07] MEDS ORDERED: MORPHINE SULFATE 4 MG/ML SYR/VIAL IV PRN (14:45)
[2017-09-07 17:59] VITALS: BP 97/43
[2017-09-07] MEDS ORDERED: ALBUTEROL SULF 2.5 MG/0.5ML(0.5%) NEB SOLN NEB PRN (18:00)
[2017-09-07] MEDS ORDERED: ACCU-CHEK COMFORT CURVE STRIP VI SCH (18:00)
[2017-09-07] MEDS ORDERED: IPRATROPIUM BROM 0.5 MG/2.5ML INH SOL NEB PRN (18:00)
[2017-09-07] MEDS ORDERED: InsuLIN REG 1unit/0.01ml Soln (100units/ml) SC SCH (18:00)
[2017-09-07] MEDS: LORazepam 2MG/ML-1ML VIAL IV PRN (21:02)
[2017-09-07 22:16] VITALS: BP 144/74
[2017-09-07] MEDS: ATORVASTATIN 20 MG TAB PO SCH (22:31)
[2017-09-08] MEDS: InsuLIN REG 1unit/0.01ml Soln (100units/ml) SC SCH ×4 (00:30→18:53)
[2017-09-08] MEDS: ACCU-CHEK COMFORT CURVE STRIP VI SCH ×4 (00:30→18:52)
[2017-09-08] MEDS: D5W/SOD CHL 0.45% 1,000 ML IV SCH ×3 (03:00→23:00)
[2017-09-08 05:31] VITALS: BP 148/84
[2017-09-08] MEDS: LORazepam 2MG/ML-1ML VIAL IV PRN ×2 (05:57→20:40)
[2017-09-08 06:37] LABS: Basophils # (auto) 0 uL; Eosinophils # (auto) 0 uL; Hemoglobin 7.8 g/dL (13.5-17.5); Lymphocytes # (auto) 0.2 uL; Lymphocytes % (auto) 4.1 % (10.0-50.0); Monocytes # (auto) 0.2 uL; Monocytes % (auto) 2.9 % (0.0-12.0)
[2017-09-08 06:39] LABS: Basophils % (auto) 0.2 % (0.0-2.0); Hematocrit 22.9 % (41.0-53.0); Mean Corpuscular Hemoglobin 35.6 pg (28.0-32.0); Mean Corpuscular Volume 104.7 fL (80.0-100.0); Neutrophils % (auto) 92.8 % (37.0-80.0); Nucleated Red Blood Cells % 0.7 %; Platelet Count (auto) 48 10^3/uL (140-450); Red Blood Cells 2.18 10^6/uL (4.5-5.90); Red Cell Distribution Width 15.1 % (11.8-14.3); White Blood Cell 5.4 10^3/uL (4.4-10.8)
[2017-09-08 07:04] LABS: Potassium 3.3 mmol/L (3.5-5.1)
[2017-09-08 07:05] LABS: BUN/Creatinine Ratio 20.7; Bilirubin, Total 0.6 mg/dL (0.2-1.0); Calcium 6.5 mg/dL (8.5-10.1)
[2017-09-08] MEDS: LISINOPRIL 20 MG TAB PO SCH ×2 (10:00→10:53)
[2017-09-08] MEDS: ASPirin-EC 81 mg tab PO SCH ×2 (10:00→10:52)
[2017-09-08] MEDS: AMIODARONE HCL 200 MG TAB PO SCH ×3 (10:00→20:39)
[2017-09-08] MEDS: SODIUM CHLOR 0.9% PF (SALINE LOCK) 10ML VIAL IV SCH ×2 (10:52→20:39)
[2017-09-08] MEDS: PANTOPRAZOLE 40 MG/10 ML VIAL IV SCH (10:52)
[2017-09-08] MEDS: methylPREDNISolone SOD SUCC 125 MG/2 ML VL IV SCH (10:52)
[2017-09-08] MEDS ORDERED: POTASSIUM CHL 20MEQ/50ML 50 ML IV ONE (11:45)
[2017-09-08] MEDS: HYDROcodone-ACET 10/325MG TAB PO PRN ×2 (17:10→17:12)
[2017-09-08] MEDS: ATORVASTATIN 20 MG TAB PO SCH (20:39)
[2017-09-08 21:44] VITALS: BP 162/89
[2017-09-09] MEDS: ACCU-CHEK COMFORT CURVE STRIP VI SCH ×5 (00:11→23:49)
[2017-09-09] MEDS: InsuLIN REG 1unit/0.01ml Soln (100units/ml) SC SCH ×5 (00:11→23:49)
[2017-09-09] MEDS: HYDROcodone-ACET 10/325MG TAB PO PRN ×2 (02:55→09:40)
[2017-09-09] MEDS: LORazepam 2MG/ML-1ML VIAL IV PRN ×2 (04:24→21:00)
[2017-09-09 04:39] VITALS: BP 139/64
[2017-09-09] MEDS: D5W/SOD CHL 0.45% 1,000 ML IV SCH ×2 (09:00→18:49)
[2017-09-09 09:28] VITALS: BP 160/79
[2017-09-09] MEDS: ASPirin-EC 81 mg tab PO SCH (09:37)
[2017-09-09] MEDS: methylPREDNISolone SOD SUCC 125 MG/2 ML VL IV SCH (09:38)
[2017-09-09] MEDS: AMIODARONE HCL 200 MG TAB PO SCH ×2 (09:38→20:59)
[2017-09-09] MEDS: LISINOPRIL 20 MG TAB PO SCH (09:40)
[2017-09-09] MEDS: PANTOPRAZOLE 40 MG/10 ML VIAL IV SCH (09:41)
[2017-09-09] MEDS: SODIUM CHLOR 0.9% PF (SALINE LOCK) 10ML VIAL IV SCH ×2 (09:41→20:59)
[2017-09-09] MEDS: MORPHINE SULF INJ 2 MG/ML SYRINGE 1ML IV PRN ×3 (10:59→23:49)
[2017-09-09 13:00] VITALS: BP 146/66
[2017-09-09 16:45] VITALS: BP 155/88
[2017-09-09] MEDS: ATORVASTATIN 20 MG TAB PO SCH (20:59)
[2017-09-09 22:00] VITALS: BP 162/80
[2017-09-09] MEDS ORDERED: SUCCINYLCHOLINE CHLORIDE 20 MG/ML 10ML VIAL IV ONE (22:46)
[2017-09-09] MEDS ORDERED: PROPOFOL 0 ML IV ONE (22:53)
[2017-09-10] MEDS: LORazepam 2MG/ML-1ML VIAL IV PRN ×2 (00:33→09:59)
[2017-09-10] MEDS: MORPHINE SULF INJ 2 MG/ML SYRINGE 1ML IV PRN ×4 (04:45→22:01)
[2017-09-10] MEDS: D5W/SOD CHL 0.45% 1,000 ML IV SCH ×2 (05:00→14:10)
[2017-09-10] MEDS: ACCU-CHEK COMFORT CURVE STRIP VI SCH ×3 (05:30→17:48)
[2017-09-10] MEDS: InsuLIN REG 1unit/0.01ml Soln (100units/ml) SC SCH ×3 (05:30→18:34)
[2017-09-10 06:31] VITALS: BP 139/94
[2017-09-10 09:00] VITALS: BP 134/78
[2017-09-10] MEDS: ASPirin-EC 81 mg tab PO SCH (09:41)
[2017-09-10] MEDS: SODIUM CHLOR 0.9% PF (SALINE LOCK) 10ML VIAL IV SCH ×2 (09:42→22:00)
[2017-09-10] MEDS: PANTOPRAZOLE 40 MG/10 ML VIAL IV SCH (09:42)
[2017-09-10] MEDS: methylPREDNISolone SOD SUCC 125 MG/2 ML VL IV SCH (09:42)
[2017-09-10] MEDS: AMIODARONE HCL 200 MG TAB PO SCH ×2 (09:42→22:00)
[2017-09-10] MEDS: LISINOPRIL 20 MG TAB PO SCH (12:24)
[2017-09-10 13:51] VITALS: BP 158/75
[2017-09-10 17:00] VITALS: BP 165/109
[2017-09-10 21:45] VITALS: BP 152/82
[2017-09-10] MEDS: ATORVASTATIN 20 MG TAB PO SCH (22:00)
[2017-09-11] MEDS: ACCU-CHEK COMFORT CURVE STRIP VI SCH ×3 (00:10→11:15)
[2017-09-11] MEDS: InsuLIN REG 1unit/0.01ml Soln (100units/ml) SC SCH ×3 (00:20→11:16)
[2017-09-11] MEDS: D5W/SOD CHL 0.45% 1,000 ML IV SCH ×2 (00:52→10:57)
[2017-09-11] MEDS: MORPHINE SULF INJ 2 MG/ML SYRINGE 1ML IV PRN ×3 (02:18→10:56)
[2017-09-11 05:20] VITALS: BP 155/96
[2017-09-11 08:00] VITALS: BP 157/83
[2017-09-11 09:00] VITALS: BP 157/83
[2017-09-11] MEDS: methylPREDNISolone SOD SUCC 125 MG/2 ML VL IV SCH (09:36)
[2017-09-11] MEDS: ASPirin-EC 81 mg tab PO SCH ×2 (09:36→09:53)
[2017-09-11] MEDS: PANTOPRAZOLE 40 MG/10 ML VIAL IV SCH (09:36)
[2017-09-11] MEDS: LISINOPRIL 20 MG TAB PO SCH ×2 (09:37→09:53)
[2017-09-11] MEDS: AMIODARONE HCL 200 MG TAB PO SCH ×2 (09:37→09:53)
[2017-09-11] MEDS: SODIUM CHLOR 0.9% PF (SALINE LOCK) 10ML VIAL IV SCH (09:37)
[2017-09-11 12:10] VITALS: BP 157/83
== END 2017-09-11 13:45 | disposition hospice, home (50) | DRG 871 ==
LOC: EDBD 16:30 → ER 16:30 → TELE 16:31 → DOU IN ICU 08-25 20:40 → TELE-WESTW 08-31 14:05 → DOU IN ICU 08-31 15:37 → TELE-WESTW 09-07 14:39
PROVIDERS: ADMIT Nurse Practitioner Family; ATTEND Family Medicine
PROC: 02HV33Z Insertion of Infusion Device into Superior Vena Cava, Percutaneous Approach (ICD-10-PCS; principal; 2017-08-26)
PROC: 5A09357 Assistance with Respiratory Ventilation, Less than 24 Consecutive Hours, Continuous Positive Airway Pressure (ICD-10-PCS; 2017-08-26)
DX: A41.9 Sepsis, unspecified organism (principal); R65.21 Severe sepsis with septic shock; G93.41 Metabolic encephalopathy; C90.00 Multiple myeloma not having achieved remission; E11.22 Type 2 diabetes mellitus with diabetic chronic kidney disease; D69.59 Other secondary thrombocytopenia; E87.0 Hyperosmolality and hypernatremia; N18.3 Chronic kidney disease, stage 3 (moderate); E11.65 Type 2 diabetes mellitus with hyperglycemia; N39.0 Urinary tract infection, site not specified; I13.0 Hypertensive heart and chronic kidney disease with heart failure and stage 1 through stage 4 chronic kidney disease, or unspecified chronic kidney disease; E87.1 Hypo-osmolality and hyponatremia; S32.049A Unspecified fracture of fourth lumbar vertebra, initial encounter for closed fracture; D50.9 Iron deficiency anemia, unspecified; D63.0 Anemia in neoplastic disease; N40.0 Benign prostatic hyperplasia without lower urinary tract symptoms; I50.9 Heart failure, unspecified; R13.10 Dysphagia, unspecified; R56.9 Unspecified convulsions; F17.210 Nicotine dependence, cigarettes, uncomplicated; I48.0 Paroxysmal atrial fibrillation; E87.6 Hypokalemia; E66.9 Obesity, unspecified; E78.00 Pure hypercholesterolemia, unspecified; E78.5 Hyperlipidemia, unspecified; E86.0 Dehydration; G25.0 Essential tremor; Z92.3 Personal history of irradiation; Z80.7 Family history of other malignant neoplasms of lymphoid, hematopoietic and related tissues; Z79.899 Other long term (current) drug therapy; Z83.3 Family history of diabetes mellitus; Z79.84 Long term (current) use of oral hypoglycemic drugs; Z79.82 Long term (current) use of aspirin; Z83.6 Family history of other diseases of the respiratory system; Z68.36 Body mass index [BMI] 36.0-36.9, adult; W19.XXXA Unspecified fall, initial encounter; Y93.89 Activity, other specified; Y92.009 Unspecified place in unspecified non-institutional (private) residence as the place of occurrence of the external cause; Y99.8 Other external cause status
CPT/HCPCS: 36415; 36569; 36600; 51702; 70450; 71010; 71045; 80048; 80053; 80061; 80202; 81001; 82607; 82746; 82784; 82805; 82962; 83036; 83605; 83735; 83880; 84132; 84439; 84443; 84484; 85025; 85610; 85730; 86880; 87040; 87070; 87081; 87086; 87205; 87400; 87493; 92610; 93005; 93306; 93886; 93971; 94640; 94660; 95819; 96361; 96374; 96375; 97110; 97116; 97163; 99291; C9113; J0330; J1815; J2001; J2405; J2543; J2704; J7060